=== PATIENT | female | born 1955 | race Two or more races ===

== ENCOUNTER 2020-08-06 09:37 | Outpatient (REF) | payer MEDICARE, MEDICAID, SELFPAY ==
--- NOTE | ~2020-08-06 | CT_ITS ---
EXAMINATION: CT SOFT TISSUE NECK WITH CONTRAST CLINICAL INFORMATION: 65-year-old with clinical information of left neck lymphadenitis. Patient states no palpable lump. COMPARISON: None TECHNIQUE: Following the intravenous administration of 100 mL of Omnipaque 350 intravenous contrast, helical imaging was performed in the axial plane with generation of coronal and sagittal reformatted images. This CT examination was performed using dose optimization techniques as appropriate, variously including the following: *Automated exposure control *Adjustment of mA and/or kV according to patient size (this includes techniques or standardized protocols for targeted exams where dose is matched to indication/reason for exam; i.e. extremities or head) *Use of iterative reconstruction technique DLP: 300.80 mGy-cm FINDINGS: Skull Base: The visualized intracranial structures appear grossly unremarkable within the limitations of the exam. The visualized orbital structures are within normal limits. The bony skull base is intact. The mastoids and middle ear cavities are unopacified. There is mild mucosal thickening in the maxillary sinuses bilaterally and in the left ethmoid complex. Suprahyoid Neck: The nasopharynx, psychologist personnel and parapharyngeal spaces appear within normal limits. The oropharynx is symmetric with tiny calcified bilateral pharyngeal tonsilloliths. The visualized oral tongue, base of the tongue and floor of the mouth structures are symmetric, with some degree of symmetric fatty atrophy of the tongue base musculature. Portions of the oral cavity, buccal and lingual spaces are obscured by dental amalgam artifact. The left parotid gland appears within normal limits. Note is made of a 2.4 x 0.8 x 1.4 cm hyperenhancing focus in the lateral aspect of the superficial lobe of the right parotid gland consistent with an intraparotid mass. Remainder of the right parotid gland appears normal. The submandibular glands appear within normal limits. A few small, normal-sized bilateral suprahyoid IJ chain lymph nodes are noted. No definite lymphadenopathy identified at the suprahyoid level. Note is made of a very large submental vein with a varicoid component on the left measuring 12 mm in maximum short axis. Note is made of a subcentimeter probable intramuscular lipoma in the left sternocleidomastoid muscle. Infrahyoid Neck: The epiglottis, larynx and hypopharynx appear within normal limits. There is an 11 mm left thyroid lobe nodule which enhances heterogeneously with small punctate calcifications in the thyroid gland on both sides. No definite lymphadenopathy. Atheromatous vascular calcifications of the left carotid bulb are noted with [id number] luminal diameter reduction suspected. Recommend correlation with carotid ultrasound. Upper Chest: The retroclavicular and visualized mediastinal regions demonstrate no definite lymphadenopathy. Some small mediastinal lymph nodes are noted. The visualized lung parenchyma is unremarkable. Skeletal: Mild lordotic reversal centered at C5-C6 with discogenic degenerative changes and spondylosis at C5-C6 and C6-C7. Mild cervicothoracic dextrocurvature. Other Comments: None CT/CT soft tissue neck w con IMPRESSION: 1. Scattered, nonenlarged mid to upper cervical lymph nodes without definite lymphadenopathy or focal mass. 2. 2.4 cm right parotid mass suspected. Recommend ENT consult for followup. 3. 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 4. Very small intramuscular lipoma in the left sternocleidomastoid muscle. 5. 1.1 cm left thyroid lobe nodule, likely a benign finding in a patient of this age. 6. Multiple nonenlarged mediastinal lymph nodes and a nonenlarged right hilar lymph node. The [facility] staff will call to confirm receipt of this report with acknowledgement of the findings and any recommendations.
[2020-08-06] MEDS: iohexoL 350 MG/ML 100 ML INFUS..BTL 60 ML IV (10:20)
== END 2020-08-06 09:38 | disposition home or self-care (01) ==
LOC: HO.CT 09:37
PROVIDERS: Visit Provider Otolaryngology
DX: R59.9 Enlarged lymph nodes, unspecified (principal)
CPT/HCPCS: 70491; Q9967